=== PATIENT | male | born 1950 | race Caucasian/White ===

== ENCOUNTER 2018-04-24 11:41 | Inpatient (IN) | payer OTHER, MEDICARE ==
[2018-04-24] MEDS ORDERED: SODIUM CHLORIDE 0.9% 500 ML IV STA (11:46)
[2018-04-24] MEDS: ADENOSINE 3 MG/ML 2 ML VIAL IVP STA ×3 (11:55→12:03)
[2018-04-24] MEDS: METOPROLOL TARTRATE 5 MG/5 ML VIAL IVP SCH ×5 (12:04→20:31)
--- NOTE | 2018-04-24 12:16 | ED ---
General Adult HPI - General Stated complaint: tachycardia Time Seen by Provider: 04/24/18 11:46 Source: patient, EMS, RN notes reviewed, old records reviewed - History of Present Illness Initial comments: 68-year-old male presents from primary care office with SVT. Patient went to the physician's office for routine physical. He was found to be tachycardic in the 180-200 range. EMS arrived, EKG was obtained and the patient was in SVT. He was given 6 mg of adenosine by EMS and converted to sinus rhythm. Patient was asymptomatic while in SVT and asymptomatic throughout. He states that he did have some lightheadedness and an episode of diaphoresis in the past 24 hours. No chest pain. No dyspnea. No lower extremity swelling. Patient was completely symptomatically at the time my evaluation. - Related Data Home Medications Medication Instructions Recorded Confirmed Aspirin [Adult Low Dose Aspirin EC] 81 mg PO DAILY 04/24/18 04/24/18 Clopidogrel [Plavix] 75 mg PO DAILY 04/24/18 04/24/18 Isosorbide Mononitrate [Isosorbide 15 mg PO HS 04/24/18 04/24/18 Mononitrate ER] Metoprolol Succinate [Toprol XL] 12.5 mg PO HS 04/24/18 04/24/18 Naproxen Sodium [Aleve] 440 mg PO Q12HR PRN 04/24/18 04/24/18 Rosuvastatin Calcium [Crestor] 2.5 mg PO Q48H 04/24/18 04/24/18 Allergies Allergy/AdvReac Type Severity Reaction Status Date / Time Penicillins Allergy Rash/Hives Verified 04/24/18 12:37 Review of Systems ROS Statement: Those systems with pertinent positive or pertinent negative responses have been documented in the HPI. ROS Other: All systems not noted in ROS Statement are negative. General Exam General appearance: alert, in no apparent distress Head exam: Present: atraumatic, normocephalic Eye exam: Present: normal appearance, PERRL ENT exam: Present: normal exam, normal oropharynx Neck exam: Present: normal inspection. Absent: tenderness, meningismus Respiratory exam: Present: normal lung sounds bilaterally. Absent: respiratory distress, wheezes Cardiovascular Exam: Present: normal rhythm, tachycardia GI/Abdominal exam: Present: soft. Absent: distended, tenderness, guarding Extremities exam: Present: normal inspection, normal capillary refill. Absent: pedal edema Back exam: Present: normal inspection, full ROM Neurological exam: Present: alert, oriented X3, CN II-XII intact. Absent: motor sensory deficit Psychiatric exam: Present: normal affect, normal mood Skin exam: Present: warm, dry, intact. Absent: cyanosis, diaphoretic Course Vital Signs 04/24/18 04/24/18 04/24/18 12:00 12:07 12:22 Temperature 98.6 F Pulse Rate 108 H 80 74 Respiratory 18 16 18 Rate Blood Pressure 176/85 145/82 129/84 O2 Sat by Pulse 100 100 100 Oximetry 04/24/18 04/24/18 04/24/18 13:15 14:17 14:25 Temperature Pulse Rate 71 162 H 63 Respiratory 18 18 18 Rate Blood Pressure 148/72 140/81 163/76 O2 Sat by Pulse 100 99 99 Oximetry - Reevaluation(s) Reevaluation #1: 04/24/18 14:51 After several hours after initial episode of SVT and conversion into sinus rhythm, patient does go back in SVT which responds to 2.5 mg of metoprolol. EKG Findings - EKG Comments: EKG Findings:: EKG: Obtained at 1148, SVT, sodium ST segment depression in the lateral precordium, rate of 185 QRS duration 114, QTC 431. EKG obtained at 1203 , sinus tachycardia with frequent PVC, right bundle branch block, rate of 102, [place] interval 146, QRS duration 122, QTC 466 Medical Decision Making - Medical Decision Making 68-year-old male presenting with SVT. Patient initially, by EMS, however he was in SVT upon arrival to the emergency department. Received adenosine and metoprolol, converted for several hours. He did have one episode where he returned SVT while the emergency department and this converted with 2.5 mg of IV metoprolol. Case was discussed with cardiology, recommended metoprolol 25 mg 3 times a day. Patient is started on this while in the emergency department. He will be kept in observation for telemetry, and serial cardiac enzymes as well as cardiology consultation. Chest x-ray negative for any acute cardio primary disease, normal CBC, normal electrolytes, initial troponin is 0.0-2, this will be trended. - Lab Data Result diagrams: 04/24/18 12:15 04/24/18 12:15 Lab Results 04/24/18 04/24/18 04/24/18 Range/Units 12:15 12:15 12:15 WBC 9.5 (3.8-10.6) k/uL RBC 4.60 (4.30-5.90) m/uL Hgb 14.3 (13.0-17.5) gm/dL Hct 44.1 (39.0-53.0) % MCV 95.8 (80.0-100.0) fL MCH 31.0 (25.0-35.0) pg MCHC 32.3 (31.0-37.0) g/dL RDW 14.2 (11.5-15.5) % Plt Count 238 (150-450) k/uL Neutrophils % 73 % Lymphocytes % 21 % Monocytes % 4 % Eosinophils % 0 % Basophils % 0 % Neutrophils # 6.9 (1.3-7.7) k/uL Lymphocytes # 2.0 (1.0-4.8) k/uL Monocytes # 0.4 (0-1.0) k/uL Eosinophils # 0.0 (0-0.7) k/uL Basophils # 0.0 (0-0.2) k/uL PT (9.0-12.0) sec INR (<1.2) APTT (22.0-30.0) sec Sodium 140 (137-145) mmol/L Potassium 4.3 (3.5-5.1) mmol/L Chloride 112 H (98-107) mmol/L Carbon Dioxide 23 (22-30) mmol/L Anion Gap 5 mmol/L BUN 16 (9-20) mg/dL Creatinine 0.91 (0.66-1.25) mg/dL Est GFR (CKD-EPI)AfAm >90 (>60 ml/min/1.73 sqM) Est GFR (CKD-EPI)NonAf 86 (>60 ml/min/1.73 sqM) Glucose 98 (74-99) mg/dL Calcium 8.8 (8.4-10.2) mg/dL Magnesium 1.8 (1.6-2.3) mg/dL Total Bilirubin 0.3 (0.2-1.3) mg/dL AST 19 (17-59) U/L ALT 21 (21-72) U/L Alkaline Phosphatase 51 (38-126) U/L Total Creatine Kinase 57 (55-170) U/L CK-MB (CK-2) 1.4 (0.0-2.4) ng/mL CK-MB (CK-2) Rel Index 2.5 Troponin I 0.022 (0.000-0.034) ng/mL Total Protein 6.2 L (6.3-8.2) g/dL Albumin 3.7 (3.5-5.0) g/dL TSH 0.892 (0.465-4.680) mIU/L 04/24/18 Range/Units 12:15 WBC (3.8-10.6) k/uL RBC (4.30-5.90) m/uL Hgb (13.0-17.5) gm/dL Hct (39.0-53.0) % MCV (80.0-100.0) fL MCH (25.0-35.0) pg MCHC (31.0-37.0) g/dL RDW (11.5-15.5) % Plt Count (150-450) k/uL Neutrophils % % Lymphocytes % % Monocytes % % Eosinophils % % Basophils % % Neutrophils # (1.3-7.7) k/uL Lymphocytes # (1.0-4.8) k/uL Monocytes # (0-1.0) k/uL Eosinophils # (0-0.7) k/uL Basophils # (0-0.2) k/uL PT 10.9 (9.0-12.0) sec INR 1.1 (<1.2) APTT 24.1 (22.0-30.0) sec Sodium (137-145) mmol/L Potassium (3.5-5.1) mmol/L Chloride (98-107) mmol/L Carbon Dioxide (22-30) mmol/L Anion Gap mmol/L BUN (9-20) mg/dL Creatinine (0.66-1.25) mg/dL Est GFR (CKD-EPI)AfAm (>60 ml/min/1.73 sqM) Est GFR (CKD-EPI)NonAf (>60 ml/min/1.73 sqM) Glucose (74-99) mg/dL Calcium (8.4-10.2) mg/dL Magnesium (1.6-2.3) mg/dL Total Bilirubin (0.2-1.3) mg/dL AST (17-59) U/L ALT (21-72) U/L Alkaline Phosphatase (38-126) U/L Total Creatine Kinase (55-170) U/L CK-MB (CK-2) (0.0-2.4) ng/mL CK-MB (CK-2) Rel Index Troponin I (0.000-0.034) ng/mL Total Protein (6.3-8.2) g/dL Albumin (3.5-5.0) g/dL TSH (0.465-4.680) mIU/L Critical Care Time Critical Care Time: Yes Total Critical Care Time: 35 Disposition Clinical Impression: Supraventricular tachycardia Disposition: ADMITTED IP TO THIS [facility] Condition: Stable Is patient prescribed a controlled substance at d/c from ED?: No Referrals: [facility],Clinic [Primary Care Provider] - 1-2 days Decision to Admit Reason: Admit from EC Decision Date: 04/24/18 Decision Time: 14:54
[2018-04-24 12:34] VITALS: RESP 18
[2018-04-24 12:35] LABS: ALT 21 U/L (21-72); AST 19 U/L (17-59); Albumin 3.7 g/dL (3.5-5.0); Alkaline Phosphatase 51 U/L (38-126); Anion Gap 5 mmol/L; Blood Urea Nitrogen 16 mg/dL (9-20); Calcium 8.8 mg/dL (8.4-10.2); Carbon Dioxide 23 mmol/L (22-30); Chloride 112 mmol/L (98-107); Glucose 98 mg/dL (74-99); Magnesium 1.8 mg/dL (1.6-2.3); Potassium 4.3 mmol/L (3.5-5.1); Sodium 140 mmol/L (137-145); Total Bilirubin 0.3 mg/dL (0.2-1.3); Total Protein 6.2 g/dL (6.3-8.2)
[2018-04-24 12:37] LABS: Basophils % (A) 0 %; Eosinophils % (A) 0 %; HCT 44.1 % (39.0-53.0); HGB 14.3 gm/dL (13.0-17.5); Lymphocytes % (A) 21 %; MCHC 32.3 g/dL (31.0-37.0); MCV 95.8 fL (80.0-100.0); Monocytes # (A) 0.4 k/uL (0-1.0); Monocytes % (A) 4 %; Neutrophils # (A) 6.9 k/uL (1.3-7.7); Neutrophils % (A) 73 %; Platelet Count 238 k/uL (150-450); RDW 14.2 % (11.5-15.5); WBC 9.5 k/uL (3.8-10.6)
[2018-04-24 12:43] LABS: INR 1.1 (<1.2); Partial Thromboplastin Time 24.1 sec (22.0-30.0); Prothrombin Time 10.9 sec (9.0-12.0)
--- NOTE | 2018-04-24 12:49 | XR ---
EXAMINATION TYPE: XR chest 2V DATE OF EXAM: 04/24/2018 COMPARISON: None INDICATION: Tachycardia TECHNIQUE: Frontal and lateral views of the chest are obtained. FINDINGS: The heart size is normal. The pulmonary vasculature is normal. The lungs are clear. IMPRESSION: 1. No acute pulmonary process.
[2018-04-24 13:07] LABS: Creatine Kinase MB 1.4 ng/mL (0.0-2.4); Troponin I 0.022 ng/mL (0.000-0.034)
[2018-04-24] MEDS ORDERED: NALOXONE 0.4 MG/ML 1 ML VIAL IV PRN (14:46)
[2018-04-24] MEDS ORDERED: NAPROXEN 250 MG TAB PO PRN (16:26)
[2018-04-24] MEDS ORDERED: ALPRAZolam 0.25 MG TAB PO PRN (16:27)
[2018-04-24] MEDS ORDERED: TEMAZEPAM 15 MG CAP PO PRN (16:27)
[2018-04-24] MEDS ORDERED: HYDROcodone/APAP 5-325MG 1 EACH TAB PO PRN (16:27)
[2018-04-24] MEDS ORDERED: ACETAMINOPHEN TAB 500 MG TAB PO PRN (16:27)
--- NOTE | 2018-04-24 17:07 | HP ---
HISTORY AND PHYSICAL CHIEF COMPLAINT: Palpitations, abnormal EKG. HISTORY OF PRESENT ILLNESS: This 68-year-old gentleman with a past medical history of hypertension, hyperlipidemia, history of nicotine dependence being followed by Dr. Steve Anne. The patient is apparently had physical routine physical in the office. The patient had tachycardia in 180-200 range. EMS has noted supraventricular tachycardia. The patient had adenosine, multiple doses repeated which reverted to normal sinus rhythm, but because of recurrence in the ER, the ER physician has given 2.5 of metoprolol and again the rhythm strip brought into normal sinus rhythm and the patient closely monitored at this time. There is no history of fever, rigors. No history of headache, loss of conscious or seizures. The patient did have some lightheadedness and diaphoresis in the past 24 hours. PAST MEDICAL HISTORY: Hypertension, hyperlipidemia, history of nicotine dependence. MEDICATIONS: Home medications are Crestor 2.5 mg q.4h hours, Aleve 440 mg b.i.d. p.r.n., Toprol-XL 12.5 mg q.h.s., Imdur 50 mg q.h.s., Plavix 75 mg p.o. daily and Ecotrin 81 mg daily. ALLERGIES: PENICILLIN. FAMILY HISTORY: No history of heart disease or strokes in the family. SOCIAL HISTORY: History of smoking continued ongoing. REVIEW OF SYSTEMS: ENT: No diminished vision. No diminished hearing. Cardiovascular: As mentioned earlier. Respiratory: No cough. GI: No nausea or vomiting. no dysuria. Central nervous system: No numbness or weakness. Allergy/Immunology: No asthma or hayfever. Musculoskeletal as mentioned earlier. Hematology/Oncology: No history of anemia. Endocrine: No history of diabetes or hypothyroidism. Constitutional: As mentioned earlier. Dermatology: Negative. Rheumatology: Negative. Psychiatry: As mentioned earlier. PHYSICAL EXAMINATION: GENERAL: The patient is alert and oriented times three . VITAL SIGNS: Pulse 62, blood pressure 157/80, respiration 18, temperature 98 degrees. Pulse ox 100 percent on 2 L. HEENT: Conjunctivae normal. Oral mucosa moist. Neck is no jugular venous distention. No carotid bruit. No lymph node enlargement. Cardiovascular system: S1, S2 tachycardic. No S3, no S4. Respiratory: Breath sounds diminished in the bases. Few rhonchi. No crackles. ABDOMEN: Soft, nontender. No mass palpable. Legs: No edema. No swelling. NERVOUS SYSTEM: Higher functions as mentioned earlier. Moves all four limbs. No focal motor deficits. Lymphatics: No lymph nodes palpable in the neck, axillae or groin. SKIN: No ulcer, rashes or bleeding. LABS: At this time shows CBC within normal limits. Chloride is 112. Total protein 6.8, EKG supraventricular tachycardia. ASSESSMENT: 1. Recurrence of supraventricular tachycardia. 2. Hypertension. 3. Hyperlipidemia. 4. History of nicotine dependence. RECOMMENDATIONS AND DISCUSSION: In this 68-year-old gentleman who was admitted with multiple medical problems, at this time I recommend to continue current management. Symptomatic treatment. The TSH is within normal limits at this time I recommend cardiology consultation. Continue the beta blockers. DVT prophylaxis. A 2D echo with Doppler. Prognosis guarded because of multiple complex medical issues. Further recommendations to follow. A copy of dictation being forwarded to Dr. Anne who is the primary care physician. Recommend to resume the home medications as well. MMODL / AKASHN: [id number] /
[2018-04-24] MEDS ORDERED: DILTIAZEM DRIP BOLUS FROM BAG 1 MG SOLN IV ONE (19:52)
[2018-04-24] MEDS: METOPROLOL TARTRATE 25 MG TAB PO SCH ×2 (20:04→23:17)
[2018-04-24] MEDS: HEPARIN SODIUM,PORCINE 5,000 UNIT/ML 1 ML VIAL SQ SCH (20:07)
[2018-04-24] MEDS: DILTIAZEM 50 MG in SODIUM CHLORIDE 0.9% 40 ML IV SCH (20:14)
[2018-04-24 20:18] VITALS: BMI 26.8
[2018-04-24 20:20] LABS: Creatine Kinase MB 1.7 ng/mL (0.0-2.4); Troponin I 0.029 ng/mL (0.000-0.034)
[2018-04-24] MEDS ORDERED: METOPROLOL TARTRATE 25 MG TAB PO SCH (21:00)
[2018-04-24] MEDS ORDERED: ISOSORBIDE MONONITRATE ER 15 MG TAB PO SCH (21:00)
[2018-04-24] MEDS: NICOTINE 14MG/24HR PATCH TRANSDERM SCH (23:17)
[2018-04-25 01:39] LABS: Creatine Kinase MB 1.5 ng/mL (0.0-2.4); Troponin I 0.022 ng/mL (0.000-0.034)
[2018-04-25 06:25] LABS: Anion Gap 3 mmol/L; Basophils % (A) 1 %; Blood Urea Nitrogen 14 mg/dL (9-20); Calcium 9.2 mg/dL (8.4-10.2); Carbon Dioxide 27 mmol/L (22-30); Chloride 109 mmol/L (98-107); Eosinophils # (A) 0.1 k/uL (0-0.7); Eosinophils % (A) 1 %; Glucose 87 mg/dL (74-99); HCT 39.2 % (39.0-53.0); HGB 12.3 gm/dL (13.0-17.5); Lymphocytes # (A) 2.7 k/uL (1.0-4.8); Lymphocytes % (A) 38 %; MCH 30.5 pg (25.0-35.0); MCHC 31.4 g/dL (31.0-37.0); MCV 97.4 fL (80.0-100.0); Mean Platelet Volume 6.9; Monocytes # (A) 0.3 k/uL (0-1.0); Monocytes % (A) 5 %; Neutrophils # (A) 3.8 k/uL (1.3-7.7); Neutrophils % (A) 54 %; Platelet Count 207 k/uL (150-450); Potassium 4.9 mmol/L (3.5-5.1); RBC 4.03 m/uL (4.30-5.90); RDW 14.1 % (11.5-15.5); Sodium 139 mmol/L (137-145); WBC 7.1 k/uL (3.8-10.6)
[2018-04-25] MEDS: DILTIAZEM 50 MG in SODIUM CHLORIDE 0.9% 40 ML IV SCH (07:01)
[2018-04-25] MEDS ORDERED: PANTOPRAZOLE 40 MG TABLET PO SCH (07:30)
[2018-04-25] MEDS: METOPROLOL TARTRATE 25 MG TAB PO SCH (08:54)
[2018-04-25] MEDS: HEPARIN SODIUM,PORCINE 5,000 UNIT/ML 1 ML VIAL SQ SCH (08:54)
[2018-04-25] MEDS ORDERED: ASPIRIN 81 MG PO SCH (09:00)
[2018-04-25] MEDS ORDERED: CLOPIDOGREL 75 MG TAB PO SCH (09:00)
[2018-04-25] MEDS ORDERED: ATORVASTATIN 10 MG TAB PO SCH (09:00)
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
[2018-04-25] MEDS: NICOTINE 14MG/24HR PATCH TRANSDERM SCH (12:27)
[2018-04-25 13:37] VITALS: BP 150/77; PULSE 62; TEMP 97.2
--- NOTE | 2018-04-25 21:23 | DS ---
DISCHARGE SUMMARY DATE OF SERVICE: 04/25/2018. FINAL DIAGNOSES: 1. Recurrent supraventricular tachycardia, paroxysmal. 2. Hypertension. 3. Hyperlipidemia. 4. History of nicotine dependence. DISCHARGE DISPOSITION: The patient will be discharged in stable condition with a guarded prognosis. HISTORY OF PRESENT ILLNESS: This 68-year-old gentleman with a past medical history of multiple medical problems was admitted with recurrent supraventricular tachycardia. Patient is as well as beta blockers. The patient improved significantly. Cardiology saw the patient and recommended the patient to be discharged outpatient. EXAM: Vital signs are stable. CARDIOVASCULAR: S1, S2. Abdomen is soft. NERVOUS SYSTEM: Nonfocal. The patient discharged in stable condition with a guarded prognosis. Diet is cardiac diet. Activity limited until followup. Follow up with Dr. Anne in 2-3 days. Follow up with [facility] as mentioned. MEDICATIONS: 1. Ecotrin 81 mg p.o. daily. 2. Plavix 75 mg p.o. daily. 3. Aleve 440 p.o. b.i.d. p.r.n. 4. Crestor 2.5 mg q.4 hours. 5. Imdur ER 50 mg q.h.s. 6. Lopressor 25 mg p.o. t.i.d. 7. Habitrol 14. No smoking. MMODL / IJN: [id number] / MTDD
== END 2018-04-25 15:29 | disposition home or self-care (01) | DRG 310 ==
LOC: EC 11:41 → 3OBS 14:55 → 6SEL 16:01 → OBSVTOIN 04-25 08:17
PROVIDERS: ADMIT Hospitalist; ATTEND Hospitalist
DX: I47.1 Supraventricular tachycardia (principal); E78.00 Pure hypercholesterolemia, unspecified; F17.200 Nicotine dependence, unspecified, uncomplicated; I10 Essential (primary) hypertension; I25.10 Atherosclerotic heart disease of native coronary artery without angina pectoris; I25.2 Old myocardial infarction; Z79.02 Long term (current) use of antithrombotics/antiplatelets; Z79.82 Long term (current) use of aspirin; Z79.899 Other long term (current) drug therapy; I45.10 Unspecified right bundle-branch block; I25.9 Chronic ischemic heart disease, unspecified; Z95.5 Presence of coronary angioplasty implant and graft; Z88.0 Allergy status to penicillin
CPT/HCPCS: 36415; 71046; 80048; 80053; 82550; 82553; 83735; 84443; 84484; 85025; 85610; 85730; 93005; 96361; 96374; 96375; 96376; 99291

== ENCOUNTER 2024-07-03 16:46 | Emergency (ER) | payer OTHER, MEDICARE ==
[2024-07-03] MEDS: SODIUM CHLORIDE 0.9% 1,000 ML IV STA (17:03)
[2024-07-03 17:08] LABS: Basophils % (A) 1 %; Eosinophils # (A) 0.1 k/uL (0-0.7); Eosinophils % (A) 2 %; HCT 47.9 % (39.0-53.0); HGB 15.5 gm/dL (13.0-17.5); Lymphocytes # (A) 3.2 k/uL (1.0-4.8); Lymphocytes % (A) 38 %; MCH 32.4 pg (25.0-35.0); MCHC 32.3 g/dL (31.0-37.0); MCV 100.2 fL (80.0-100.0); Mean Platelet Volume 7.4; Monocytes # (A) 0.5 k/uL (0-1.0); Monocytes % (A) 6 %; Neutrophils # (A) 4.5 k/uL (1.3-7.7); Neutrophils % (A) 53 %; Platelet Count 225 k/uL (150-450); RBC 4.78 m/uL (4.30-5.90); RDW 13.7 % (11.5-15.5); WBC 8.5 k/uL (3.8-10.6)
[2024-07-03] MEDS: ADENOSINE 3 MG/ML 2 ML VIAL IVP STA (17:09)
[2024-07-03 17:20] LABS: ALT 7 U/L (4-49); AST 23 U/L (17-59); African American GFR (CKD) >90 (>60 ml/min/1.73 sqM); Albumin 3.9 g/dL (3.5-5.0); Alkaline Phosphatase 50 U/L (38-126); Anion Gap 11 mmol/L; Blood Urea Nitrogen 7 mg/dL (9-20); Calcium 9.5 mg/dL (8.4-10.2); Carbon Dioxide 22 mmol/L (22-30); Chloride 105 mmol/L (98-107); Glucose 77 mg/dL (74-99); Magnesium 2.1 mg/dL (1.6-2.3); Non-African American GFR(CKD) 81 (>60 ml/min/1.73 sqM); Potassium 4.3 mmol/L (3.5-5.1); Sodium 138 mmol/L (137-145); Total Bilirubin 0.6 mg/dL (0.2-1.3); Total Protein 6.8 g/dL (6.3-8.2)
[2024-07-03 17:21] LABS: INR 0.9 (<1.2); Partial Thromboplastin Time 23.9 sec (22.0-30.0); Prothrombin Time 10.1 sec (10.0-12.5)
--- NOTE | 2024-07-03 17:59 | XR ---
EXAMINATION TYPE: XR chest 2V DATE OF EXAM: 07/03/2024 COMPARISON: 04/24/2018 INDICATION: Dysrhythmia rapid heart rate, SVT TECHNIQUE: Frontal and lateral views of the chest are obtained. FINDINGS: The heart size is normal. The pulmonary vasculature is normal. The lungs are clear. IMPRESSION: 1. No acute pulmonary process. [facility], Workstation: [facility], 07/03/2024 5:57 PM
--- NOTE | 2024-07-03 18:21 | CT ---
EXAMINATION TYPE: CT brain wo con DATE OF EXAM: 07/03/2024 COMPARISON: None INDICATION: Confusion DLP: 1197.4 mGycm, Automated exposure control for dose reduction was used. CONTRAST: None CT of the brain is performed utilizing 3 mm thick sections through the posterior fossa and 3 mm thick sections through the remaining calvarium. Study is performed within 24 hours of arrival to the hosp [facility]. No abnormal hyperdensity is present to suggest an acute intracranial hemorrhage. No mass lesion is evident. No acute infarcts are evident. Periventricular white matter hypodensity is present compatible with pa tchy to confluent white matter ischemic-type changes Ventricles and sulci are appropriate for the patient age. Paranasal sinuses and mastoid air cells within the [id number] are clear. IMPRESSION: 1. No acute intracranial process. Follow up MRI can be performed as clinically indicated. 2. Chronic periventricular patchy to confluent white matter ischemic-type changes. [facility], Workstation: [facility], 07/03/2024 6:19 PM
[2024-07-03] MEDS: METOPROLOL SUCCINATE (ER) 25 MG TAB.ER.24H PO STA (18:49)
[2024-07-03 18:58] LABS: Appearance,Urine Clear (Clear); Bilirubin,Urine Negative (Negative); Blood,Urine Negative (Negative); Color,Urine Light Yellow; Glucose,Urine (UA) Negative (Negative); Ketones,Urine Negative (Negative); Leukocyte Esterase,Urine Negative (Negative); Nitrite,Urine Negative (Negative); Protein,Urine Negative (Negative); Specific Gravity,Urine 1.004 (1.001-1.035); Urobilinogen,Urine <2.0 mg/dL (<2.0)
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
[2024-07-03 19:16] VITALS: BP 145/85; PULSE 87; RESP 16; TEMP 98.2
== END 2024-07-03 19:25 | disposition home or self-care (01) ==
LOC: EC 16:46
CPT/HCPCS: 36415; 70450; 71046; 80053; 80320; 81003; 82140; 83735; 84443; 85025; 85610; 85730; 87636; 93005; 96361; 96374; 99291